=== PATIENT | male | born 1975 | race Caucasian/White ===

== ENCOUNTER 2019-10-10 20:53 | Emergency (ER) | payer BC ==
[2019-10-10] MEDS ORDERED: TOPICAL SKIN ADHESIVE 1 EACH AMP TOPICAL ONE (21:41)
--- NOTE | 2019-10-10 22:05 | ED ---
Skin/Abscess/FB HPI - General Chief complaint: Skin/Abscess/Foreign Body Stated complaint: Ulcerated vein burst Time Seen by Provider: 10/10/19 21:11 Source: patient Mode of arrival: ambulatory Limitations: no limitations - History of Present Illness Initial comments: Patient is a 44-year-old male presenting to the emergency Department with complaints of a bleeding varicose vein in his left lower leg. Patient states he didn't hit it on anything but just noticed it started bleeding. Patient states he has never had this happen before. He denies being on blood thinners. 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 Denies any fever, chills, swelling. He has no further complaints at this time. - Related Data Allergies Allergy/AdvReac Type Severity Reaction Status Date / Time No Known Allergies Allergy Verified 10/10/19 21:03 Review of Systems ROS Statement: Those systems with pertinent positive or pertinent negative responses have been documented in the HPI. ROS Other: All systems not noted in ROS Statement are negative. Past Medical History Past Medical History: No Reported History History of Any Multi-Drug Resistant Organisms: None Reported Past Surgical History: Appendectomy Additional Past Surgical History / Comment(s): finger surgery Past Psychological History: No Psychological Hx Reported Smoking Status: Light tobacco smoker Past Alcohol Use History: None Reported Past Drug Use History: None Reported General Exam - General Exam Comments Initial Comments: GENERAL: Well-appearing, well-nourished and in no acute distress. HEAD: Atraumatic, normocephalic. EYES: Pupils equal round and reactive to light, extraocular movements intact, sclera anicteric, conjunctiva are normal. ENT: TMs normal, nares patent, oropharynx clear without exudates. Moist mucous membranes. NECK: Normal range of motion, supple without lymphadenopathy or JVD. LUNGS: Breath sounds clear to auscultation bilaterally and equal. No wheezes rales or rhonchi. HEART: Regular rate and rhythm without murmurs, rubs or gallops. ABDOMEN: Soft, nontender, normoactive bowel sounds. No guarding, no rebound. No masses appreciated. : Deferred EXTREMITIES: Normal range of motion, no pitting or edema. No clubbing or cyanosis. NEUROLOGICAL: Normal speech, normal gait. PSYCH: Normal mood, normal affect. SKIN: Warm, Dry, normal turgor, no rashes. Patient has a varicose vein on the anterior aspect of his left lower leg. There is no bleeding at this time. Limitations: no limitations Course Vital Signs 10/10/19 10/10/19 21:04 22:26 Temperature 98.9 F 98.7 F Pulse Rate 96 82 Respiratory 18 17 Rate Blood Pressure 110/75 101/71 O2 Sat by Pulse 99 98 Oximetry Medical Decision Making - Medical Decision Making Patient is a 44-year-old male here for a bleeding varicose vein on the left lower leg prior to arrival. On exam, there is no active bleeding. I did apply some topical skin glue to the area. Patient stable for discharge. He will follow up with his PCP, he is in agreement this plan of care. Case discussed with Dr. Lynch. Disposition Clinical Impression: Bleeding from varicose vein Disposition: HOME SELF-CARE Condition: Stable Instructions (If sedation given, give patient instructions): Skin Adhesive Care (ED) Additional Instructions: Please return to the Emergency Department if symptoms worsen or any other concerns. Follow-up with PCP as discussed. Is patient prescribed a controlled substance at d/c from ED?: No Referrals: None,Stated [Primary Care Provider] - 1-2 days
[2019-10-10 22:26] VITALS: BP 101/71; PULSE 82; RESP 17; TEMP 98.7
== END 2019-10-10 22:28 | disposition home or self-care (01) ==
LOC: EC 20:53
DX: I83.892 Varicose veins of left lower extremity with other complications (principal); F17.200 Nicotine dependence, unspecified, uncomplicated
CPT/HCPCS: 12001; 99283